=== PATIENT | male | born 1990 | race Caucasian/White ===

== ENCOUNTER 2021-08-31 09:23 | Day surgery (SDC) | payer MEDICARE ==
--- NOTE | 2021-08-31 08:20 | HP ---
DATE OF SURGERY: 08/31/2021 HISTORY OF PRESENT ILLNESS: The patient is a 31-year-old with right upper quadrant pain. Ultrasound showed cholelithiasis. He had nausea at the time of the episode. Pain is a little better now. He denies any jaundice. Bowel movements some loose. Stool urgency after eating, worse with fatty or greasy foods, worse with spicy foods. I feel he had acute exacerbation of chronic cholecystitis, symptomatic cholelithiasis. I feel he would benefit from cholecystectomy. PAST MEDICAL HISTORY: He denies any chronic illnesses although he takes Zonisamide and doxepin. PAST SURGICAL HISTORY: Appendectomy. MEDICATIONS: Zonisamide, doxepin. ALLERGIES: NKDA. FAMILY HISTORY: Negative. SOCIAL HISTORY: Denies smoking or alcohol abuse. REVIEW OF SYSTEMS: Fourteen systems reviewed. No chest pain or palpitations. Other systems negative or noncontributory as above and per preadmission questionnaire. He had traumatic brain injury in 2013. PHYSICAL EXAMINATION: GENERAL: No acute distress. HEENT: Sclerae nonicteric. NECK: No JVD. CHEST: Equal excursion, nonlabored breathing. CVS: Regular rate and rhythm. ABDOMEN: Soft. No peritoneal signs. EXTREMITIES: No significant edema. NEURO: Alert, oriented, moving extremities symmetrically. PSYCH: Appropriate mood and affect. IMPRESSION: Acute exacerbation of chronic cholecystitis, symptomatic cholelithiasis. I feel the patient will benefit from cholecystectomy. He was shown the gallbladder risk sheet, explained the procedure in detail including but not limited to bleeding or infection, risk of trocar injury or hernia, risk of bowel, bladder or blood vessel injury, risk of bile leak, bile duct injury, retained stone or sludge possibly requiring further procedure either open or ERCP, general risk of anesthesia, deep venous thrombosis, pulmonary embolism, pneumonia, perioperative risk of aches, pains, bloating, constipation and/or loose stools possibly even chronic in nature. He understands and agrees to the planned procedure, will proceed with laparoscopic cholecystectomy with possible open as an outpatient.
[~2021-08-31 09:23] MED LIST: Lactated Ringers 1,000 ML IV ONE; Sensorcaine 0.25% 10 ML ONE
[2021-08-31] MEDS ORDERED: Lactated Ringers 1,000 ML IV SCH (10:00)
[2021-08-31] MEDS ORDERED: MEFOXIN 2 GM PREMIX** 2 GM/50 ML ML IV SCH (10:00)
[2021-08-31] MEDS ORDERED: DIPRIVAN 200 MG/20 ML IV ONE (13:15)
[2021-08-31] MEDS ORDERED: Xylocaine-Mpf 2% 5 Ml Vial ONE (13:16)
[2021-08-31] MEDS ORDERED: Zofran 4 MG/2 ML VIAL ONE ×2 (13:16→14:53)
[2021-08-31] MEDS ORDERED: Zemuron 100 MG/10 ML ONE (13:16)
[2021-08-31] MEDS ORDERED: Quelicin Fliptop 200 MG/10 ML ONE (13:16)
[2021-08-31] MEDS ORDERED: Pre-Attached Lta Kit TP ONE (13:17)
[2021-08-31] MEDS ORDERED: SUBLIMAZE 100 MCG/2 ML ONE ×3 (13:19→14:43)
[2021-08-31] MEDS ORDERED: Versed 2 MG/2 ML Injection ONE (13:19)
[2021-08-31] MEDS ORDERED: Decadron 4 MG INJ ONE (13:49)
[2021-08-31] MEDS ORDERED: ATROPINE SULFATE 1MG ONE (13:54)
[2021-08-31] MEDS ORDERED: BRIDION 200MG/2ML IV ONE (14:03)
[2021-08-31] MEDS ORDERED: DEMEROL 50 MG ONE (14:24)
[2021-08-31] MEDS ORDERED: Hydromorphone 1 mg/ml Injection ONE (14:43)
--- NOTE | 2021-08-31 15:09 | OP ---
SURGERY DATE/TIME: 08/31/2021 1320 PREOPERATIVE DIAGNOSIS: Acute exacerbation of chronic cholecystitis, symptomatic cholelithiasis. POSTOPERATIVE DIAGNOSIS: Acute exacerbation of chronic cholecystitis, symptomatic cholelithiasis. PROCEDURE: Laparoscopic cholecystectomy. SURGEON: Dr. Aram Hernandez. OUTPATIENT PHYSICAL THERAPIST ASSISTANT: Malinda Villasenor, Medical Student III. ANESTHESIA: General. ESTIMATED BLOOD LOSS: Minimal. INDICATIONS: As noted above. Risks and benefits explained in detail but not limited to and consent obtained. DESCRIPTION OF PROCEDURE AND FINDINGS: The patient is taken to the operating room. General anesthesia induced. Abdomen is prepped and draped in the usual sterile fashion. After official time out and no disagreement with planned procedure, a transverse incision made at the supraumbilical area. Fascia grasped and pulled upward with the Maicol clamp. Veress needle inserted and tested with saline. Pneumoperitoneum accomplished insufflating opening pressure of 0-15. A 5 mm bladeless port and camera inserted without difficulty followed by two - 5 mm right upper quadrant ports and 11 mm epigastric port. The gallbladder is quite inflamed, kind of a subacute on chronic inflammation. Dissected posterior, lateral to anterior fashion. He had a lot of edema and inflammation but slowly and carefully dissected until the critical view obtained anterior and posteriorly. The cystic duct had been dissected out until critical view obtained. It was then clipped x3 and divided in the usual fashion. Gallbladder slowly and carefully dissected free isolating the main cystic artery clipping x3 and divided in usual fashion. The gallbladder was a little bit on the vascular side. It required clipped additional oozing side branches off of the cystic artery and cystic vein directly on the gallbladder wall as necessary. The gallbladder is slowly and carefully dissected free from its dense attachments to the liver bed. Just prior to releasing from final attachments to the anterior edge of the liver, the liver bed re-inspected. Clips noted to be in place in cystic duct and cystic artery stumps. No signs of any active bleeding or bile leakage. It was felt there was no benefit from drain placement. The gallbladder released from final attachments to anterior edge of the liver, placed in the provided sac by the hospital, pulled up through epigastric wound. It was necessary to enlarge the defect slightly with a clamp allowing the gallbladder and bag to be pulled free and passed off. This fascial defect closed with puncture closure device with #1 Vicryl under direct vision of the camera. Liver bed re-inspected. Irrigation irrigating clear. Good hemostasis noted. No signs of any active bleeding or bile leakage. It was felt there was no benefit from drain placement. Pneumoperitoneum decompressed. The wound irrigated out. Skin incision closed with 4-0 Vicryl. Steri-Strips and sterile dressing applied. 0.25% Marcaine local injected along the skin incision fascial defect. The patient tolerated the procedure well. There were no immediate complications. Findings discussed with the family out in the waiting area.
[2021-08-31 16:18] VITALS: BP 142/86; PULSE 98; O2SAT 98
== END 2021-08-31 16:15 | disposition home or self-care (01) ==
LOC: SDC 09:23
PROVIDERS: ATTEND Surgery
DX: K80.10 Calculus of gallbladder with chronic cholecystitis without obstruction (principal)
CPT/HCPCS: J0330; J0461; J0694; J1100; J1170; J2175; J2250; J2405; J2704; J3010

== ENCOUNTER 2022-06-07 02:42 | Emergency (ER) | payer MEDICARE ==
[2022-06-07] MEDS ORDERED: Adacel Vial IM ONE ×2 (03:14→03:23)
[2022-06-07] MEDS ORDERED: Zofran 4 MG/2 ML VIAL IV ONE (03:15)
[2022-06-07] MEDS ORDERED: MORPHINE SULFATE 4 MG INJ IV ONE (03:15)
[2022-06-07] MEDS ORDERED: MORPHINE SULFATE 4 MG INJ ONE (03:22)
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
[2022-06-07 03:33] LABS: Basophil (Absolute #) 0.01 x10^3/uL (0-0.4); Eosinophil % 0.5 % (0.00-5.0); Eosinophil (Absolute #) 0.04 x10^3/uL (0-0.5); Hematocrit 42.1 % (42-50); Hemoglobin 13.8 g/dL (12.5-18.0); Lymphocyte (Absolute #) 1.48 x10^3/uL (1.0-4.6); Lymphocytes % 16.8 % (24.0-44.0); Mean Cell Volume 88.3 fL (78-100); Mean Corpuscular Hemoglobin 28.9 pg (26-32); Mean Corpuscular Hgb Concent. 32.8 g/dL (32-36); Mean Platelet Volume 10.1 fL (7.5-11.0); Monocyte (Absolute #) 0.45 x10^3/uL (0.0-1.3); Monocytes % 5.1 % (0.0-12.0); Platelet Count 153 x10^3/uL (150-450); Red Blood Count 4.77 x10^6/uL (4.1-5.6); Red Cell Distribution Width 12.9 % (11.5-14.0); White Blood Count 8.8 x10^3/uL (4.0-10.5)
[2022-06-07 03:53] LABS: ALBUMIN 4.1 g/dL (3.5-5.0); ALKALINE PHOSPHATASE 71 U/L (38-126); ANION GAP 10.6 MEQ/L (5-15); BLOOD UREA NITROGEN 15 mg/dL (9-20); CHLORIDE 108 mmol/L (98-107); Calcium 8.8 mg/dL (8.4-10.2); Carbon Dioxide 28 mmol/L (22-30); Creatinine 1 1.26 mg/dL (0.66-1.25); EST GLOMERULAR FILTRATION RATE > 60.0 ML/MIN; Glucose 88 mg/dL (74-106); LIPASE 131 U/L (23-300); SGOT/AST 28 U/L (17-59); SGPT/ALT 38 U/L (0-50); SODIUM 143 mmol/L (137-145)
[2022-06-07 04:07] VITALS: BP 147/82; PULSE 75
[2022-06-07 04:15] LABS: Appearance SLIGHTLY CLOUDY (CLEAR); Bilirubin NEGATIVE (NEGATIVE); Dipstick done @ ? MAIN LAB; Glucose NEGATIVE (NEGATIVE); Ketones NEGATIVE (NEGATIVE); Nitrite NEGATIVE (NEGATIVE); Protein,Urine Dip TRACE (Negative); RBC NEGATIVE Ery/ul (0-5); Urobilinogen 1 mg/dL (0-1)
[2022-06-07 04:28] LABS: Amourphous Crystal FEW /HPF (NEGATIVE); WBC 0-2 /HPF (0-5)
[2022-06-07 04:29] LABS: Urine Cultured Indicated? NO
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
[2022-06-10 14:10] VITALS: O2SAT 99
== END 2022-06-07 05:00 | disposition home or self-care (01) ==
LOC: ED 02:42
DX: S39.012A Strain of muscle, fascia and tendon of lower back, initial encounter (principal); S29.011A Strain of muscle and tendon of front wall of thorax, initial encounter; S00.83XA Contusion of other part of head, initial encounter; V48.5XXA Car driver injured in noncollision transport accident in traffic accident, initial encounter; Z79.899 Other long term (current) drug therapy; Z28.310 Unvaccinated for COVID-19
CPT/HCPCS: 36415; 70450; 71250; 72125; 72131; 80053; 81015; 83690; 84484; 85025; 90715; 99283; J2270

== ENCOUNTER 2023-11-29 20:08 | Emergency (ER) | payer MEDICARE ==
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
[2023-11-29 20:24] VITALS: TEMP 98
[2023-11-29 22:03] VITALS: BP 124/68; PULSE 82; RESP 17
[2023-11-29 22:09] VITALS: O2SAT 99
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
== END 2023-11-29 22:38 | disposition home or self-care (01) ==
LOC: ED 20:08
DX: S01.81XA Laceration without foreign body of other part of head, initial encounter (principal); S80.01XA Contusion of right knee, initial encounter; S40.211A Abrasion of right shoulder, initial encounter; V89.2XXA Person injured in unspecified motor-vehicle accident, traffic, initial encounter
CPT/HCPCS: 12011; 70450; 71250; 99285